=== PATIENT | female | born 1950 | race Two or more races ===

== ENCOUNTER 2018-08-09 11:43 | Emergency (ER) | payer MEDICARE, BC ==
[~2018-08-09] VITALS: Ht 154.9 cm; Wt 48.5 kg
[2018-08-09] MEDS ORDERED: IV NORMAL SALINE 1000 ML BAG IV ONE (12:00)
[2018-08-09] MEDS ORDERED: ONDANSETRON 4 MG/2 ML VIAL IV ONE (12:00)
[2018-08-09] MEDS ORDERED: ONDANSETRON 4 MG/2 ML VIAL ONE (12:03)
[2018-08-09 12:14] LABS: POTASSIUM 3.9 mmol/L (3.5-5.1)
[2018-08-09 12:20] LABS: BILIRUBIN,DIRECT 0.2 mg/dL (0.0-0.2); BILIRUBIN,TOTAL 0.4 mg/dL (0.2-1.0); TOTAL PROTEIN, SERUM 7.3 g/dL (6.4-8.2)
[2018-08-09] MEDS ORDERED: INSULIN REGULAR, HUMAN 300 UNIT/3 ML VIAL ONE (12:27)
[2018-08-09] MEDS ORDERED: INSULIN REGULAR, HUMAN 300 UNIT/3 ML VIAL IV ONE (12:30)
[2018-08-09 12:32] LABS: BASOPHILS % (AUTO) 0.6 % (0.0-2.0); EOSINOPHILS % (AUTO) 0.1 % (0.0-7.0); HEMATOCRIT 22.3 % (31.2-41.9); HEMOGLOBIN 7.7 g/dL (10.9-14.3); LYMPHOCYTES # (AUTO) 0.5 K/uL (20.0-40.0); LYMPHOCYTES % (AUTO) 32.6 % (20.5-51.5); MEAN CORPUSCULAR HEMOGLOBIN 38.2 uug (24.7-32.8); MEAN CORPUSCULAR HGB CONC 35 g/dL (32.3-35.6); MEAN CORPUSCULAR VOLUME 110.2 fL (75.5-95.3); MONOCYTES # (AUTO) 0.2 K/uL (2.0-10.0); MONOCYTES % (AUTO) 14.9 % (0.0-11.0); NEUTROPHILS # (AUTO) 0.8 K/uL (1.8-8.9); NEUTROPHILS % (AUTO) 51.8 % (38.5-71.5); PLATELET COUNT (AUTO) 129 K/uL (179-408)
[2018-08-09 12:33] LABS: RED BLOOD CELL COUNT(AUTO) 2.02 MIL/uL (3.63-4.92); WHITE BLOOD COUNT (AUTO) 1.6 K/uL (3.8-11.8)
[2018-08-09 12:39] LABS: LYMPHOCYTES % (MANUAL) 33 % (20-40); MONOCYTES % (MANUAL) 15 % (2-10); NEUTROPHILS % (MANUAL) 52 % (42-75)
--- NOTE | 2018-08-09 13:19 | NUR ---
PATIENT RESTING IN BED NO DISTRESS. ALERT AND ORIENTED ABLE TO FOLLOW COMMANDS. PATIENT DENIES N/V AT THIS TIME AND REPORTS NO PAIN.
[2018-08-09 14:07] VITALS: BP 120/46
== END 2018-08-09 14:12 | disposition home or self-care (01) ==
LOC: ER 11:43
DX: R11.10 Vomiting, unspecified (principal); R10.9 Unspecified abdominal pain; E11.65 Type 2 diabetes mellitus with hyperglycemia; C50.919 Malignant neoplasm of unspecified site of unspecified female breast; C79.51 Secondary malignant neoplasm of bone; Z88.5 Allergy status to narcotic agent
CPT/HCPCS: 36415; 80048; 80076; 82962 ×3; 83690; 85025; 96361; 96374; 99285; J1815; A4663; J2405; J7030